=== PATIENT | female | born 1950 | race Caucasian/White ===

== ENCOUNTER 2018-02-18 08:41 | Inpatient (IN) | payer MEDICARE ==
[~2018-02-18] VITALS: Ht 152.4 cm; Wt 64.8 kg
[2018-02-18] VITALS (14 sets, daily range): BP systolic 99–180; BP diastolic 44–140
--- NOTE | 2018-02-18 09:11 | NUR ---
PT GIVEN BREAKFAST TRAY.
[2018-02-18 09:13] LABS: HEMATOCRIT 38.2 % (37.0-47.0); NUCLEATED RBCS 0 /100WBC
[2018-02-18 09:15] LABS: ABSOLUTE EOSINOPHILS 0.3 thou/uL (0.0-0.7); ABSOLUTE LYMPHOCYTES 1.1 thou/uL (0.8-5.3); ABSOLUTE MONOCYTES 0.4 thou/uL (0.0-1.2); ABSOLUTE NEUTROPHILS 8.8 thou/uL (1.6-8.1); BASOPHILS 0.3 %; EOSINOPHILS 2.9 %; HEMOGLOBIN 12.6 gm/dL (12.0-15.0); LYMPHOCYTES 10.3 %; MCHC 33.1 g/dL (28.0-37.0); MCV 90.6 fL (80.0-100.0); MPV 8.3 fl. (7.2-11.1); PLATELET COUNT* 191 thou/uL (150-400); POLYS 82.5 %; RBC 4.22 mil/uL (4.20-5.00); RDW-CV 14.8 % (10.5-14.5); WBC 10.6 thou/uL (4.0-11.0)
[2018-02-18 09:20] LABS: CALCIUM 10.6 mg/dL (8.5-10.1); CREATININE 1.1 mg/dL (0.6-1.3); POTASSIUM 3.7 mmol/L (3.5-5.1)
[2018-02-18 09:30] LABS: URINE BILIRUBIN NEGATIVE (Negative); URINE BLOOD 1+ (Negative); URINE CLARITY CLEAR; URINE COLOR YELLOW; URINE GLUCOSE-RANDOM 3+ (Negative); URINE KETONES NEGATIVE (Negative); URINE LEUKOCYTES-REFLEX NEGATIVE (Negative); URINE NITRITE-REFLEX NEGATIVE (Negative); URINE PROTEIN 1+ (Negative); URINE UROBILINOGEN 0.2 E.U./dl (0.2-1.0)
[2018-02-18 09:32] LABS: ALBUMIN 3.7 g/dL (3.4-5.0); TOTAL BILIRUBIN 0.6 mg/dL (<0.1-1.0); TOTAL PROTEIN 7.6 g/dL (6.4-8.2); TROPONIN-I LEVEL 0.33 ng/mL (<0.06)
[2018-02-18 09:40] LABS: BACTERIA-REFLEX None Seen /HPF (None Seen); CASTS None Seen /LPF (None Seen); CRYSTALS None Seen /LPF (None Seen); SQUAMOUS NONE SEEN /LPF (0-3); URINE RBC 0-2 Rare /HPF (0-2); URINE WBC-REFLEX None Seen /HPF (0-5)
[2018-02-18] MEDS ORDERED: BAYER CHEWABLE81 MG PO (09:45)
[2018-02-18] MEDS ORDERED: CIPRO500 MG PO (09:45)
[2018-02-18] MEDS ORDERED: COREG6.25 MG PO (09:46)
[2018-02-18] MEDS ORDERED: PLAVIX 75 MG TA75 M1 PO (09:46)
[2018-02-18] MEDS ORDERED: LIPITOR80 MG PO (09:46)
[2018-02-18] MEDS ORDERED: LEVEMIR SUBQ (09:46)
[2018-02-18] MEDS ORDERED: GLUCOPHAGE XR500 MG PO (09:47)
[2018-02-18] MEDS ORDERED: LISINOPRIL20 MG PO (09:47)
--- NOTE | 2018-02-18 10:01 | NUR ---
PT REQUESTING TRANSFER TO [facility]
--- NOTE | 2018-02-18 10:22 | NUR ---
PT HAD "EPISODE" OF BEING UNRESPONSIVE DURING CT, TECH CALLED ED. WENT TO CT WHERE PT WAS VOMITING BUT AWAKE AND ALERT. MONITOR PLACED, NO CHANGES IN VITALS. ZOFRAN GIVEN FOR NAUSEA BEFORE COMPLETING CT SCAN. PT TOLERATED WELL.
--- NOTE | 2018-02-18 16:55 | NUR ---
RECEIVED PT FROM [facility]. PT A/O X'S 4. NO C/O PAIN. PACEMAKER PLACED. INCISION IS CLEAN, DRY, INTACT AND OPEN TO AIR. RIGHT GROIN SITE ASSESSED. PER CARIOLOGY TEMPORARY PACEMAKER INITIALLY STARTED TO PLACE. VENOUS SHEET PULLED OUT IN [facility]. GUAZE AND TEGADERM IN PLACE. SITE CLEAN, DRY, & INTACT. 2+ PALPABLE PULSES IN RADIAL AND PEDAL. ASKED PT ABOUT HOME MEDICATIONS. PT STATED, "PLEASE ASK MY DTR" DTR ASKED AND STATED "THE LIST IS IN HER PURSE". PURSE GIVEN TO PT BY DTR. PT LOOKED THROUGH PURSE AND STATED LIST NOT IN PURSE. "MY MUST HAVE THE LIST". IN COMMUTE HOME. WILL ATTEMPT TO CALL WHEN HE'S HOME. SLING IN PLACE TO LEFT ARM. ARM ELEVATED PER ORDERS. VSS. AFEBRILE. WILL CONTINUE PLAN OF CARE.
--- NOTE | 2018-02-18 17:02 | EKG ---
[place] [address] ELECTROCARDIOGRAM REPORT Name: NURY CARTAGENA Room: [address] ADM IN .R.#: [id number] Admission: 02/18/18 Attend Phys: Ken May Discharge: Date of : 46 Report #: [id number] THIS REPORT FOR: //name// [facility] ED Test Date: 2018-02-18 Test Time: 08:50:45 Pat Name: NURY CARTAGENA Department: Room: [facility] Gender: F Dcs Engineer: : 1950 Requested By: Luis Urena Order Number: [id number] MD: Eddie Eckert Measurements Intervals [place] Rate: 102 P: 39 NV: 187 QRS: -60 QRSD: 137 T: 143 QT: 360 QTc: 469 Interpretive Statements Sinus tachycardia Probable left atrial enlargement Right bundle branch block LVH with IVCD and secondary repol abnrm No previous ECG available for comparison Electronically Signed On 02-18-2018 17:02:22 DIRECTOR REACTOR PROJECTS by Eddie Eckert [email or web address] <ELECTRONICALLY SIGNED> By: Eddie Eckert MD, [facility] 02/18/18 1702 0850 0850 Eddie Eckert MD, [facility] /EPI
--- NOTE | 2018-02-18 17:05 | EKG ---
[place] [address] ELECTROCARDIOGRAM REPORT Name: NURY CARTAGENA Room: [address] ADM IN .R.#: [id number] Admission: 02/18/18 Attend Phys: Ken May Discharge: Date of : 46 Report #: [id number] THIS REPORT FOR: //name// [facility] ED Test Date: 2018-02-18 Test Time: 10:43:12 Pat Name: NURY CARTAGENA Department: Room: [facility] Gender: F Workers Compensation Administrator: KIM : 1950 Requested By: Luis Urena Order Number: [id number] Lillie MD: Eddie Eckert Measurements Intervals [place] Rate: 32 P: 102 GA: 251 QRS: 119 QRSD: 156 T: -81 QT: 650 QTc: 475 Interpretive Statements Predominant 4:1 AV block RBBB and LPFB Repol abnrm, global ischemia, diffuse leads Electronically Signed On 02-18-2018 17:05:31 PLATE INSPECTOR by Eddie Eckert [email or web address] <ELECTRONICALLY SIGNED> By: Eddie Eckert MD, [facility] 02/18/18 1705 1043 1043 Eddie Eckert MD, FAC /EPI
--- NOTE | 2018-02-18 17:07 | EKG ---
[place] [address] ELECTROCARDIOGRAM REPORT Name: NURY CARTAGENA Room: [address] ADM IN .R.#: [id number] Admission: 02/18/18 Attend Phys: Ken May Discharge: Date of : 46 Report #: [id number] THIS REPORT FOR: //name// [facility] ED Test Date: 2018-02-18 Test Time: 10:47:44 Pat Name: NURY CARTAGENA Department: Room: [facility] Gender: F Apprentice Stylist: KIM : 1950 Requested By: Luis Urena Order Number: [id number] Reading MD: Eddie Eckert Measurements Intervals [place] Rate: 38 P: 51 NH: 275 QRS: -46 QRSD: 130 T: 203 QT: 610 QTc: 485 Interpretive Statements complete AV block LEFT POSTERIOR FASCICULAR BLOCK and RBBB Electronically Signed On 02-18-2018 17:06:58 FURNACE ERECTOR by Eddie Eckert [email or web address] <ELECTRONICALLY SIGNED> By: Eddie Eckert MD, [facility] 02/18/18 1706 1047 1047 Eddie Eckert MD, FACC /EPI
--- NOTE | 2018-02-18 17:07 | EKG ---
[place] [address] ELECTROCARDIOGRAM REPORT Name: NURY CARTAGENA Room: [address] ADM IN .R.#: [id number] Admission: 02/18/18 Attend Phys: Ken May Discharge: Date of : 46 Report #: [id number] THIS REPORT FOR: //name// [facility] ED Test Date: 2018-02-18 Test Time: 10:51:24 Pat Name: NURY CARTAGENA Department: Room: [facility] Gender: F [place]: KIM : 1950 Requested By: Luis Urena Order Number: [id number] Reading MD: Eddie Eckert Measurements Intervals [place] Rate: 36 P: 0 UT: QRS: -47 QRSD: 121 T: 220 QT: 611 QTc: 473 Interpretive Statements AV block, complete (third degree) LEFT ANTERIOR FASCICULAR BLOCK and RBBB Borderline prolonged QT interval Baseline wander in lead(s) I,II,aVR,aVL,aVF Electronically Signed On 02-18-2018 17:07:35 VIDEOTAPE SALES REPRESENTATIVE by Eddie Eckert [email or web address] <ELECTRONICALLY SIGNED> By: Eddie Eckert MD, FAC 02/18/18 1707 1051 1051 Eddie Eckert MD, [facility] /EPI
--- NOTE | 2018-02-18 17:08 | EKG ---
[place] [address] ELECTROCARDIOGRAM REPORT Name: NURY CARTAGENA Room: [address] ADM IN .R.#: [id number] Admission: 02/18/18 Attend Phys: Ken May Discharge: Date of : 46 Report #: [id number] THIS REPORT FOR: //name// [facility] ED Test Date: 2018-02-18 Test Time: 11:01:19 Pat Name: NURY CARTAGENA Department: Room: [facility] Gender: F Shipwright Supervisor: KIM : 1950 Requested By: Luis Urena Order Number: [id number] Lillie MD: Eddie Eckert Measurements Intervals [place] Rate: 120 P: [place]: QRS: -52 QRSD: 124 T: 144 QT: 386 QTc: 546 Interpretive Statements sinus tachycardia LEFT ANTERIOR FASCICULAR BLOCK and RBBB LVH with IVCD and secondary repol abnrm Prolonged QT interval Electronically Signed On 02-18-2018 17:08:37 MANUFACTURING ANALYST by Eddie Eckert [email or web address] <ELECTRONICALLY SIGNED> By: Eddie Eckert MD, [facility] 02/18/18 1708 00 00 Eddie Eckert MD, [facility] /EPI
[2018-02-18] MEDS ORDERED: CALCIUM 500 +1 EAC5 PO (18:33)
[2018-02-19] VITALS: BP 114/54
--- NOTE | 2018-02-19 00:35 | NUR ---
INITAL ASSESMENT COMPLETED AT 1930. PT SLEEPING WITH OU CLOSED AT THAT TIME. PT AROUSES TO TOUCH AND VOICE. PT'S RIGHT GROIN SITE SOFT, NO BLEEDING OR HEMETOMA. PT INSTRUCTED TO CALL IF BLEEDING OR SWELLING OCCUR AT SITE.
[2018-02-19 01:00] VITALS: BP 116/53
[2018-02-19 03:00] VITALS: BP 117/60
[2018-02-19 04:38] VITALS: BP 127/58
--- NOTE | 2018-02-19 05:41 | NUR ---
PT RETURNED FROM RADIOLOGY FOR PA AND LATERAL CHEST XRAY. PT IN PACED RHYTHM THROUGHOUT SHIFT. HEART RATE AND BLOOD PRESSURE WITHIN NORMAL LIMITS. FISHER CATHETER DISCONTINUED.
--- NOTE | 2018-02-19 09:08 | H ---
[place] [address] HISTORY AND PHYSICAL Name: NURY CARTAGENA Room: [address] ADM IN M.R.#: [id number] Admission: 02/18/18 Attend Phys: Ken May Discharge: Date of : 46 Report #: [id number] THIS REPORT FOR: //name// CC: Eddie Wright DATE OF SERVICE: 02/18/2018 HISTORY OF PRESENT ILLNESS: The patient is a 67-year-old white female who I was asked to see in the Emergency Room after she had a syncopal spell. The history is obtained from the patient and her who is present. There are no old records available here at [place]. Apparently almost 20 years ago, the patient had triple vessel coronary bypass surgery at [facility]. She has done fairly well since that time. She has been followed by clinical quality assurance associate in [facility], who goes to [place], [place]. She is not very active. Apparently 2 years ago, she had a stroke involving the left side of her body. She was admitted to [facility]. She has been on Plavix since that time. She is not very active. However, she denies any recent chest pain, shortness of breath or palpitations. Recently, she has had some low back pain. She apparently saw Dr. Taylor yesterday and noted to have some hematuria. She is placed on antibiotic for urinary tract infection. Today, the patient was in home when she was on the stool, felt lightheaded and fell to the ground. She then awakened. Paramedics were called. When paramedics arrived, she apparently had another syncopal spell. She was brought here to [place] by ambulance. After the patient arrived here, she had an episode of complete heart block with several seconds of P waves, but no R waves. She was given atropine. Cardiology consultation was requested. She is currently in sinus rhythm. She denies any recent tick bite, lightheadedness or previous syncope. PAST MEDICAL HISTORY: She has had a previous cataract extraction. She has a history of hypertension, diabetes, hyperlipidemia. MEDICATIONS: Consists of Levemir insulin, lisinopril, aspirin, carvedilol, metformin, glyburide, atorvastatin, Plavix. ALLERGIES: SHE HAS AN ALLERGY TO BACTRIM. FAMILY HISTORY: Her mother had heart disease. SOCIAL HISTORY: She is . She and her live in [place], [place]. No smoking or alcohol abuse. REVIEW OF SYSTEMS: She has had no history of asthma. She has had a peptic ulcer. She has chronic kidney disease. No cancer. No psychiatric illness. [place] [address] HISTORY AND PHYSICAL Name: NURY CARTAGENA Room: [address] IN [facility]#: [id number] Admission: 02/18/18 Attend Phys: Ken May Discharge: Date of : 46 Report #: [id number] PHYSICAL EXAMINATION: GENERAL: Revealed an elderly frail appearing female lying on a stretcher. She appeared in mild distress. VITAL SIGNS: She had a blood pressure 160/80, pulse is 100. She is afebrile. HEENT: She was anicteric. Conjunctivae are pale. Mucous membranes appear dry. NECK: Veins nondistended. No carotid bruits heard. CHEST: Clear to auscultation. CARDIOVASCULAR: Regular rate and rhythm, no murmur. ABDOMEN: Soft. EXTREMITIES: Had no edema. Dorsalis pedis pulse cannot be palpated. SKIN: Cool and dry. NEUROLOGIC: She is very slow moving. DIAGNOSTIC DATA: There is currently no ECG available. Her workup so far, she had CT scan of the head without contrast that showed evidence of previous right thalamic subacute chronic infarction. Her chest x-ray, normal heart size and clear lung griffin. LABORATORY DATA: Sodium 140, potassium 3.7, creatinine 1.1, glucose 259. Liver function studies are normal. Troponin is 0.33. White blood cell count 10.6, hemoglobin 12.6. Urinalysis, positive glucose, positive protein, positive blood, negative for leukocytes. IMPRESSION AND RECOMMENDATIONS: 1. Complete heart block. Recommend pacemaker. 2. Coronary artery disease. No recent angina. 3. Hypertension. The patient is on an GORYD and a beta aster. 4. Diabetes. 5. Hyperlipidemia. The patient is on a statin drug. 6. Previous stroke. The patient is on Plavix. <ELECTRONICALLY SIGNED> By: Anshu Bautista MD, FACC 02/19/1808 1127 1150Davijenni Eckert MD, FACC /nt
[2018-02-19 09:24] VITALS: BP 131/68
[2018-02-19 11:23] VITALS: BP 131/68
--- NOTE | 2018-02-20 10:19 | EKG ---
[place] [address] ELECTROCARDIOGRAM REPORT Name: MITZINURY Room: [address] IN M.R.#: [id number] Admission: 02/18/18 Attend Phys: Ken May Discharge: 02/19/18 Date of : 46 Report #: [id number] THIS REPORT FOR: //name// [facility] Test Date: 2018-02-19 Test Time: 08:18:45 Pat Name: NURY CARTAGENA Department: Room: [facility] Gender: F Thread Trimmer: : 1950 Requested By: Eddie Eckert Order Number: [id number] Reading MD: Anshu Bautista Measurements Intervals [place] Rate: 95 P: 54 SC: 178 QRS: -61 QRSD: 129 T: 145 QT: 409 QTc: 514 Interpretive Statements Sinus rhythm Right bundle-branch block Left anterior fascicular block Nonspecific ST and T wave abnormality LVH with IVCD, LAD and secondary repol abnrm Prolonged QT interval Compared to ECG 02/18/2018 11:01:19 Sinus tachycardia no longer present Electronically Signed On 02-20-2018 10:19:05 CLINICAL TRIAL COORDINATOR by Anshu Bautista [email or web address] <ELECTRONICALLY SIGNED> By: Anshu Bautista MD, FACC 02/20/18 1019 7 7 Anshu Bautista MD, FACC /EPI
--- NOTE | 2018-02-20 10:49 | D ---
[facility] [address] [place] [address] DISCHARGE SUMMARY Name: NURY CARTAGENA Room: [address] IN M.R.#: [id number] Admission: 02/18/18 Attend Phys: Ken May Discharge: 02/19/18 Date of : 46 Report #: [id number] THIS REPORT FOR: //name// CC: Eddie Eckert MD [facility] Eddie Wright DATE OF SERVICE: 02/19/2018 DISCHARGE DIAGNOSES: 1. Complete heart block. 2. Coronary artery disease. 3. Hypertension. 4. Type 2 diabetes mellitus. 5. Hyperlipidemia. 6. Remote history of cerebrovascular accident. PROCEDURES DURING THE HOSPITALIZATION: Temporary pacemaker placement, followed by permanent dual-chamber pacemaker placement. HOSPITAL COURSE: The patient was admitted to the hospital on 02/18/2018 after having a syncopal episode. The patient was noted to be in complete heart block. She underwent emergent temporary pacemaker placement, followed by uneventful dual-chamber permanent pacemaker placement. The patient's hospital course was otherwise unremarkable. She is being discharged to home in stable condition. DISCHARGE MEDICATIONS: Lisinopril 20 mg p.o. every day, insulin as directed, aspirin 81 mg daily, Lipitor 80 mg at bedtime, Os-Kang 500 plus D b.i.d., carvedilol 6.25 mg b.i.d., ciprofloxacin 500 mg q.12 hours per primary physician, Plavix 75 mg daily and metformin 500 mg b.i.d. DISPOSITION: The patient is to follow up on 03/08/2018 for evaluation of her pacemaker with Dr. Eckert. <ELECTRONICALLY SIGNED> By: Anshu Bautisat MD, FACC 02/20/18 [id number] [facility] [facility] Bautista MD, FACC /nt
--- NOTE | 2018-02-21 08:13 | CARD ---
[address] [address] CARDIAC CATH REPORT Name: NURY CARTAGENA Room: [address] IN M.R.#: [id number] Admission: 02/18/18 Attend Phys: Ken May Discharge: 02/19/18 Date of : 46 Report #: [id number] THIS REPORT FOR: //name// APPROVED REPORT Study performed: 02/18/2018 11:04:17 Patient Status: ED Room #: Event Personnel: Eddie Eckert Gamma Facilities Operator, Mahnaz Hooks RN, Solomon Potter, Irene Rivera Monitor Exam: Insertion of Dual Chamber Permanent Pacemaker Indications: Complete Heart Block The patient is a 67 year-old female with a history of Syncope. Conscious Sedation Start time: 11:53 End Time: 12:15 Fentanyl 50 mcg Versed 1 mg Implanted Devices: dual chamber mri compatible biotronic pacemaker Procedure The patient underwent informed consent. We discussed the details of the procedure including the risks, which include, but not limited to bleeding, infection, vascular damage, cardiac perforation, and pneumothorax. She understood these risks and was willing to proceed. As such, she was brought to the EP/Cardiac Catheterization laboratory in a fasting and sedated state and prepped and draped in a sterile fashion, received IV antibiotics prior to initiation of the procedure and a venogram was performed showing patency of the left axillary vein. The patient underwent conscious sedation, with no related complications. The patient was brought to the EP/Cardiac Catheterization laboratory and the left chest and shoulder were prepped and draped in a sterile manner. During this case, Fluoroscopy and low osmolar contrast were used for imaging. The left subclavian region was infiltrated with 2% Lidocaine subcutaneous anesthesia. A transverse incision was made in the left upper chest cavity. The subcutaneous pocket was formed via blunt dissection. Percutaneous venous access was achieved and [place] introdu[place] [address] CARDIAC CATH REPORT Name: NURY CARTAGENA Room: [address] IN ..#: [id number] Admission: 02/18/18 Attend Phys: Ken May Discharge: 02/19/18 Date of : 46 Report #: [id number] the left Subclavian vein. Sheaths were positions using the modified Seldinger technique Through the introducer sheaths the atrial and ventricular lead wires were positioned in the right atrial appendage and right ventricular apex respectively. Utilizing fluoroscopic guidance, the atrial and ventricular lead wires were advanced over the wires and positioned in the right atria and right ventricle respectively. Capturing and sensing thresholds were verified. Electrode Parameters P Wave: 2.7 mv R Wave: 4.9 mv Atrial Threshold: 1.0 v @ 0.4 ms Ventricular Threshold: 1.0 @ 0.4 ms Atrial Resistance: 409 ohm Ventricular Resistance: 546 ohm Dual Chamber The atrial and ventricular leads were then secured using 0 silk sutures. The subcutaneous pocket was irrigated with ancef antibiotic solution.The atrial and ventricular leads were attached to the appropriate receptacles on the pulse generator and set screws firmly tightened to insure adequate contact and stability. The lead and pulse generator were placed into the subcutaneous pocket. Sharp and sponge counts were confirmed to be correct. At this time the pocket was closed subcutaneously with a 0 Vicryl and the skin was closed with a 4.0 Vicryl. The operative site was dressed in sterile fashion with skin affix and the patient was transferred to the floor in stable condition. Findings Specimens Removed: No Estimated Blood Loss: 5 cc Conclusion successful placement of a dual chamber pacemaker and leads <ELECTRONICALLY SIGNED> By: Eddie Eckert MD, [facility] 02/21/18812 2 2Dashantell Eckert MD, FACC /INF
--- NOTE | 2018-02-22 08:24 | CARD ---
[facility] [address] [place] [address] CARDIAC CATH REPORT Name: NURY CARTAGENA Room: [address] IN M.R.#: [id number] Admission: 02/18/18 Attend Phys: Ken May Discharge: 02/19/18 Date of : 46 Report #: [id number] THIS REPORT FOR: //name// CC: Eddie Wright DATE OF SERVICE: 02/18/2018 TITLE OF PROCEDURE: Placement of a temporary pacing lead through the right femoral vein. DESCRIPTION OF PROCEDURE: The patient brought urgently to the cardiac catheterization lab after a syncopal episode and the patient was noted to have intermittent complete heart block. The right groin area was cleaned with ChloraPrep and sterilely draped in usual fashion. The area was anesthetized with 1% lidocaine and a 6-Irish sheath was placed in the right femoral vein using the percutaneous technique. The sheath was sutured in place using 2-0 silk. A 5-Irish bipolar balloon tip pacing lead was then inserted through the sheath and guided under fluoroscopy into the apex of right ventricle. Threshold for capture was less than 1 milliamp. The lead was secured in place and the sheath sutured using 0 silk. A sterile dressing was applied. The patient left the cardiac catheterization lab in stable condition. IMPRESSION: Successful placement of a temporary pacing lead through the right femoral vein. <ELECTRONICALLY SIGNED> By: Eddie Eckert MD, [facility] 02/22/18 0824 0816 1927Davijenni Eckert MD, LILLIE /nt
== END 2018-02-19 12:31 | disposition home or self-care (01) | DRG 243 ==
LOC: M.ERS 08:41 → M.TBA-ER 11:09 → M.ICU 11:09
PROVIDERS: Emergency Medicine Emergency Medical Services; ADMIT Internal Medicine
DX: I44.2 Atrioventricular block, complete (principal); N39.0 Urinary tract infection, site not specified; E11.9 Type 2 diabetes mellitus without complications; I25.10 Atherosclerotic heart disease of native coronary artery without angina pectoris; E78.5 Hyperlipidemia, unspecified; I10 Essential (primary) hypertension; I25.2 Old myocardial infarction; Z86.73 Personal history of transient ischemic attack (TIA), and cerebral infarction without residual deficits; Z95.1 Presence of aortocoronary bypass graft; Z79.82 Long term (current) use of aspirin; Z79.84 Long term (current) use of oral hypoglycemic drugs; Z79.899 Other long term (current) drug therapy; Z88.1 Allergy status to other antibiotic agents; Z82.49 Family history of ischemic heart disease and other diseases of the circulatory system

== ENCOUNTER 2019-12-09 05:55 | Emergency (ER) | payer MEDICARE ==
[~2019-12-09] VITALS: Ht 160 cm; Wt 59.0 kg
--- NOTE | ~2019-12-09 | EMS ---
[place] [address] EMS Patient Care Report Name: NURY AYALA [id number] Admission: 12/09/19 Attend Phys: Discharge: Date of : 46 Report #: [id number] THIS REPORT FOR: //name// Report Transmitted: 12/09/2019 05:56 EMS Care Summary [facility] Incident [id number] @ 12/09/2019 04:34 Incident Location [address] [place] [address] Patient NURY AYALA Female, 69 Years 1950 Patient Address [address] [place] [address] Patient History Diabetes,Pacemaker/AICD,Myocardial Infarction (MA), Patient Allergies Erythromycin, Patient Medications Clopidogrel, Metformin, Lisinopril, Atorvastatin, Chief Complaint Nausea Disposition Transported No Lights/[place] Reason Diabetic Problem Transported To [facility] Narrative Dispatch: [facility] was dispatched to a local residence for a patient who had a possible diabetic problem. [facility] responded from the station and [place] [address] EMS Patient Care Report Name: NURY AYALA Room: [facility]#: [id number] Admission: 12/09/19 Attend Phys: Discharge: Date of : 46 Report #: [id number] Chief Complaint: Upon arrival to the scene, the patient, (Nury Ayala) was found walking in her living room to a chair. Nury stated that she had nausea and diarrhea, and that she had just been feeling unwell for the last three or four days. No immediate life threats or injuries were noted. History of Present Illness: Nury stated that nothing like this had ever happened to her before. She stated that approximately three or four days ago, that she began to feel nauseated as well as an increased difficulty moving around. She stated she also felt more lethargic. Nury denied any changes in her routine, and stated that the problems gradually got worse over the aforementioned time frame. Nury stated that she also had flank area back pain, stating that it felt like a kidney stone. Assessment: Primary Assessment - Nury had a patent airway, her respiratory effort was noted to be labored. Her skin was pink, warm, and dry. Radial pulses were present. No disability was noted. Secondary Assessment - See assessment section for further information. Reason for Ambulance Transport: Nury required further evaluation and treatment at the hospital. Treatment: Assessment was performed. Vital signs were obtained. 3-Lead and 12-Lead EKGs were obtained showing a paced rhythm without ectopy or elevation. IV access was obtained in the left forearm with a 20 gauge catheter. It was flushed and secured with a saline lock. 4 milligrams of IV ondansetron was administered. Summary of Call: Nury was assisted to her stair lift device via her walker, she was then transported down the stairs via her stair lift, and was then transferred to the cot. All seat belts were applied. Nury was taken to the ambulance and loaded without incident. She was covered with a blanket. Treatments and assessments performed as noted. Non-emergency transport to the hospital began. During transport, no changes in patient condition were noted. Report was called to the receiving facility. Upon arrival to the hospital, Nury was unloaded and taken into the facility without incident. She was transferred to the hospital bed without incident. Report was given to nursing staff, signatures were obtained, and [place] [address] EMS Patient Care Report Name: NURY AYALA Room: [facility]#: [id number] Admission: 12/09/19 Attend Phys: Discharge: Date of : 46 Report #: [id number] Initial Vitals @04:49P: 110,R: 20,BP: 136/74,GCS: 15,Glucose: 230,SpO2: 99,Revised Trauma: 12, @05:17P: 119,R: 16,BP: 136/78,Pain: 2/10,GCS: 15,SpO2: 96,Revised Trauma: 12, @05:32P: 107,R: 16,BP: 137/65,Pain: 2/10,GCS: 15,SpO2: 96,Revised Trauma: 12, @05:42P: 107,R: 18,Pain: 2/10,GCS: 15,SpO2: 98, @05:27P: 115,R: 18,BP: 137/67,Pain: 2/10,GCS: 15,SpO2: 96,Revised Trauma: 12, @05:06P: 104,R: 16,Pain: 2/10,GCS: 15,SpO2: 100,MA Suspected: false @05:02P: 100,R: 16,BP: 162/80,Pain: 4/10,GCS: 15,Temp: 98.1F,SpO2: 96,Revised Trauma: 12, Assessments @04:51MENTAL:Person Oriented,Time Oriented,Event Oriented,Place Oriented,SKIN:HEENT:Eyes: Left Pupil: 2-mm,Eyes: Right Pupil: 2-mm,LUNG SOUNDS:General: Nausea,General: Diarrhea,ABDOMEN:General: Nausea,General: Diarrhea,PELVIS//GI:EXTREMITIES:Capillary Refill: Right Upper: < 2 Sec,PULSE:Radial: 2+ Normal,NEURO:@05:32MENTAL:Place Oriented,Event Oriented,Person Oriented,Time Oriented,SKIN:HEENT:Eyes: Right Pupil: 2-mm,Eyes: Left Pupil: 2-mm,LUNG SOUNDS:ABDOMEN:PELVIS//GI:EXTREMITIES:Left Arm: No Abnormalities,Right Arm: No Abnormalities,Left Leg: No Abnormalities,Right Leg: No Abnormalities,PULSE:NEURO: Impression Nausea Procedures @04:45ALS AssessmentResponse: UnchangedSucceeded@05:10Normal Saline (.9% NaCl) 10cc (20 ga) Site: Forearm-LeftResponse: UnchangedSucceeded@05:12Zofran - 4 Milligrams (mg) - Intravenous (IV)Response: Improved@05:0612-Lead ECGResponse: UnchangedSucceeded Timeline 04:34,Call Received 04:34,Dispatched 04:37,En Route 04:41,On Scene 04:43,At Patient 04:45,ALS Assessment,Response: UnchangedSucceeded, 04:49,BP: 136/74 M,PULSE: 110,RR: 20 R,SPO2: 99 Ox,ETCO2: ,B,PAIN: ,GCS: 15, 05:02,BP: 162/80 M,PULSE: 100,RR: 16 R,SPO2: 96 Ox,ETCO2: ,BG: ,PAIN: 4,GCS: 15, 05:06,12-Lead ECG,Response: UnchangedSucceeded, 05:06,BP: / M,PULSE: 104,RR: 16 R,SPO2: 100 Ox,ETCO2: ,BG: ,PAIN: 2,GCS: 15, 05:10,Normal Saline (.9% NaCl) 10cc 20 ga Site: Forearm-Left,Response: UnchangedSucceeded, 05:11,[place] [address] EMS Patient Care Report Name: SUNSHINE AYALAA Room: [facility]#: [id number] Admission: 12/09/19 Attend Phys: Discharge: Date of : 46 Report #: [id number] 05:12,Zofran - 4 Milligrams (mg) - Intravenous (IV),Response: Improved 05:17,BP: 136/78 M,PULSE: 119,RR: 16 R,SPO2: 96 Ox,ETCO2: ,BG: ,PAIN: 2,GCS: 15, 05:27,BP: 137/67 M,PULSE: 115,RR: 18 R,SPO2: 96 Ox,ETCO2: ,BG: ,PAIN: 2,GCS: 15, 05:32,BP: 137/65 M,PULSE: 107,RR: 16 R,SPO2: 96 Ox,ETCO2: ,BG: ,PAIN: 2,GCS: 15, 05:42,BP: / M,PULSE: 107,RR: 18 R,SPO2: 98 Ox,ETCO2: ,BG: ,PAIN: 2,GCS: 15, 05:50,At Destination 06:48,Call Closed Disclaimer v1.1 Copyright 2020 [employer] This EMS Care Summary contains data elements from the applicable legal record (which may be displayed differently). It is designed to provide pertinent information for the following purposes: continuity of care, clinical quality, and state data reporting. The complete legal record is available to ED staff and administrators of the receiving hospital in [employer] Patient Tracker. All data is provided "as is."
[~2019-12-09 05:55] MED LIST: BAYER CHEWABLE81 MG PO; CALCIUM 500 +1 EAC5 PO; CIPRO500 MG PO; COREG6.25 MG PO; GLUCOPHAGE XR500 MG PO; LEVEMIR SUBQ; LIPITOR80 MG PO; LISINOPRIL20 MG PO; PLAVIX 75 MG TA75 M1 PO
[2019-12-09 06:00] VITALS: BP 149/60
[2019-12-09 07:00] LABS: BE -1.3 mmol/L (-2 to +3); PCO2 38.7 mmHg (35.0-45.0); PO2 84.3 mmHg (75.0-100.0); pH 7.397 (7.340-7.450)
[2019-12-09 07:22] LABS: HEMATOCRIT 30.8 % (37.0-47.0); HEMOGLOBIN 10.8 gm/dL (12.0-15.0); MCH 31.1 pg (26.0-34.0); MCHC 34.9 g/dL (28.0-37.0); MPV 8.2 fl. (7.2-11.1); NUCLEATED RBCS 0 /100WBC; PLATELET COUNT* 178 thou/uL (150-400); RBC 3.46 mil/uL (4.20-5.00); RDW-CV 14.5 % (10.5-14.5)
[2019-12-09 07:34] LABS: APTT 27.3 Seconds (25.0-31.3); INR 1.1; PROTIME 11.2 Seconds (9.20-11.50)
[2019-12-09 07:40] LABS: URINE BILIRUBIN NEGATIVE (Negative); URINE BLOOD 2+ (Negative); URINE CLARITY CLEAR; URINE COLOR YELLOW; URINE GLUCOSE-RANDOM 2+ (Negative); URINE KETONES TRACE (Negative); URINE LEUKOCYTES-REFLEX TRACE (Negative); URINE PROTEIN 2+ (Negative); URINE SPECIFIC GRAVITY 1.025 (1.005-1.030); URINE UROBILINOGEN 0.2 E.U./dl (0.2-1.0)
[2019-12-09 07:49] LABS: CALCIUM 10.8 mg/dL (8.5-10.1); CREATININE 1.2 mg/dL (0.6-1.3); POTASSIUM 3.8 mmol/L (3.5-5.1)
[2019-12-09 07:53] LABS: ALBUMIN 2.9 g/dL (3.4-5.0); MAGNESIUM 1.5 mg/dL (1.8-2.4); TOTAL BILIRUBIN 0.6 mg/dL (<0.1-1.0); TOTAL PROTEIN 7.2 g/dL (6.4-8.2)
[2019-12-09 07:53] LABS: URINE NITRITE-REFLEX POSITIVE (Negative)
[2019-12-09 07:54] LABS: SQUAMOUS 4-10 Moderate /LPF (0-3)
[2019-12-09 07:55] LABS: URINE WBC-REFLEX >25 Many /HPF (0-5)
[2019-12-09 07:56] LABS: BACTERIA-REFLEX >30 Many /HPF (None Seen); URINE RBC 3-10 Few /HPF (0-2)
[2019-12-09 07:57] LABS: CASTS None Seen /LPF (None Seen); CRYSTALS None Seen /LPF (None Seen); MUCUS None Seen strn/LPF (None Seen)
[2019-12-09 08:19] LABS: ABSOLUTE LYMPHOCYTES 0.6 thou/uL (0.8-5.3); ABSOLUTE MONOCYTES 0.6 thou/uL (0.0-1.2); ABSOLUTE NEUTROPHILS 9.9 thou/uL (1.6-8.1); PLATELET ESTIMATE ADEQUATE
[2019-12-09 08:20] LABS: ANISOCYTOSIS Occasional
[2019-12-09 11:05] VITALS: BP 129/60
--- NOTE | 2019-12-10 13:58 | EKG ---
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1950 Requested By: Rika Ford Order Number: [id number] MD: Anshu Bautista Measurements Intervals [place] Rate: 104 P: 43 TX: 164 QRS: -53 QRSD: 120 T: 114 QT: 347 QTc: 457 Interpretive Statements Sinus tachycardia Right bundle branch block Left anterior fascicular block LVH with IVCD, LAD and secondary repol abnrm Compared to ECG 02/19/2018 08:18:45 Sinus rhythm no longer present Left anterior fascicular block no longer present Prolonged QT interval no longer present Electronically Signed On 12-10-2019 13:58:45 CDT by Anshu Bautista [email or web address] <ELECTRONICALLY SIGNED> By: Anshu Bautista MD, [facility] 12/10/19 1358 0556 0556 Anshu Bautista MD, [facility] /EPI
== END 2019-12-09 11:05 | disposition short-term general hospital (02) ==
LOC: M.ERS 05:55 → M.TBA-ER 09:03 → M.ERS 09:03
PROVIDERS: Personal Emergency Response Attendant
DX: I21.4 Non-ST elevation (NSTEMI) myocardial infarction (principal); N17.9 Acute kidney failure, unspecified; N20.0 Calculus of kidney; N39.0 Urinary tract infection, site not specified; R19.7 Diarrhea, unspecified; I10 Essential (primary) hypertension; E11.9 Type 2 diabetes mellitus without complications; Z20.828 Contact with and (suspected) exposure to other viral communicable diseases; Z88.1 Allergy status to other antibiotic agents; Z88.2 Allergy status to sulfonamides

== ENCOUNTER → 2020-01-18 | Outpatient (CLI) | payer MEDICARE ==
--- NOTE | 2020-01-19 15:57 | CARDNUC ---
[place] [address] CARDIAC NUCLEAR IMAGING REPORT Name: NURY CARTAGENA Room: [facility]#: [id number] Admission: 01/18/20 Attend Phys: Anshu Bautista, Discharge: Date of : 46 Date of Service: 01/19/20 1557 Report #: [id number] THIS REPORT FOR: cc: ALCIRA STEWART NP, HALEY E. NP Park, Jin S. MD ~ APPROVED REPORT Imaging Protocol: Rest Tc-99m/Stress Tc-99m 1 day Study performed: 01/18/2020 11:34:37 Indication: Syncope Stress Tech: Aminata Weiner Stress Nurse: Ruth Acevedo RN NM Tech:ABEL Han Ht: 5 ft 1 in Wt: 132 lbs BSA: 1.58 m2 BMI: 24.93 Medical History Medical History: CAD s/p CABG, Diabetes, HTN, Hyperlipidemia, Pacemaker in situ, Stroke/TIAcomplete heart block Medications: asa, atorvastatin, carvedilol, plavix, lisinopril Allergies: bactrim, cipro, macrolides, ketolides Cardiac Risk Factors: Age, Diabetes (insulin), FHX of CAD, HTN, Hyperlipidemia Previous Cardiac Procedures: CABG, PPM Exercise History: Sedentary Meds Held (24 hrs): carvedilol Resting Data Rest SPECT myocardial perfusion imaging was performed in supine position 30 minutes following the intravenous injection of 10.0 mCi of Tc-99m Sestamibi. Time of rest injection: 1000 Date: 01/18/2020 The images were gated to evaluate regional wall motion and calculate left ventricular ejection fraction. Administration Route: IV Administration Site: Right AC Pharmacologic Stress Pharmacologic stress test was performed by injecting Regadenoson 0.4 mg IV push over 10-15 seconds immediately [place] [address] CARDIAC NUCLEAR IMAGING REPORT Name: NURY CARTAGENA Room: [facility]#: [id number] Admission: 01/18/20 Attend Phys: Anshu Bautista, Discharge: Date of : 46 Date of Service: 01/19/20 1557 Report #: [id number] injection of 33.5 mCi of Tc-99m Sestamibi. Time of stress injection: 1130 Date: 01/18/2020 Administration Route: IV Administration Site: Right AC Gated Stress SPECT was performed 40 minutes after stress injection. The images were gated to evaluate regional wall motion and calculate left ventricular ejection fraction. Prone imaging was performed. Stress Test Details Stress Test: Pharmacologic stress testing performed using 0.4 mg of regadenoson per 5 mL given IV over 10 seconds. Reason for pharmacologic stress test: PPM. HR Max Heart Rate (APMHR): 149 bpm Resting HR: 82 bpm Target HR (85% APMHR): 126 bpm Max HR Achieved: 113 bpm % of APMHR: 75 Recovery HR: 93 bpm BP Resting BP: 169/83 mmHg Max BP: 138/77 mmHg Recovery BP: 173/69 mmHg ECG Resting ECG: Sinus Rhythm, RBBB Stress ECG: Sinus Rhythm, RBBB ST Change: Non-ischemic Clinical Reason for Termination: Completed protocol Nurse Comments 60 mg caffeine given ivp for n/v Study Quality Study: Good Study Data Post stress, the left ventricular ejection was 56%.. Perfusion There is a medium area of moderately reduced uptake in the basal and mid segment of the inferior wall which is seen [place] [address] CARDIAC NUCLEAR IMAGING REPORT Name: NURY CARTAGENA Room: [facility]#: [id number] Admission: 01/18/20 Attend Phys: Anshu Bautista, Discharge: Date of : 46 Date of Service: 01/19/20 1557 Report #: [id number] and improves on the resting images. This is most consistent with ischemia. Nuclear Conclusion ECG Findings: negative for ischemia Clinical Findings: non-diagnostic Nuclear Findings: positive for ischemia Exercise Capacity: not assessed There is a reversible defect in the inferior wall, consistent with ischemia. The left ventricular ejection fraction is calculated to be 56%. <ELECTRONICALLY SIGNED> By: Abel Hernandez MD 01/19/20 1557 155 155 Abel Hernandez MD /INF
== END ==
LOC: M.NUC 01-03 15:01 → M.CRD 09:00 → M.NUC 09:25
PROVIDERS: ATTEND Internal Medicine Cardiovascular Disease
DX: I25.10 Atherosclerotic heart disease of native coronary artery without angina pectoris (principal)

== ENCOUNTER → 2020-02-12 | Outpatient (CLI) | payer MEDICARE ==
[2020-02-12] VITALS (8 sets, daily range): BP systolic 117–170; BP diastolic 56–83
[~2020-02-12] VITALS: Ht 154.9 cm; Wt 61.7 kg
[~2020-02-12] MED LIST changes: +GLUCOPHAGE1000 MG PO
[2020-02-12 09:33] LABS: HEMATOCRIT 37.1 % (37.0-47.0); HEMOGLOBIN 12.3 gm/dL (12.0-15.0); MCHC 33.1 g/dL (28.0-37.0); MCV 90.7 fL (80.0-100.0); MPV 7.7 fl. (7.2-11.1); RBC 4.09 mil/uL (4.20-5.00); RDW-CV 14.8 % (10.5-14.5); WBC 6.4 thou/uL (4.0-11.0)
[2020-02-12 09:47] LABS: ANION GAP 4 mmol/L (7-16); BUN 20 mg/dL (7-18); CHLORIDE 101 mmol/L (98-107); CO2 29 mmol/L (21-32); CREATININE 1.1 mg/dL (0.6-1.3); GLUCOSE 177 mg/dL (70-99); POTASSIUM 4.4 mmol/L (3.5-5.1); SODIUM 134 mmol/L (136-145)
[2020-02-12 09:52] LABS: ALBUMIN 3.8 g/dL (3.4-5.0); ALKALINE PHOSPHATASE 101 U/L (46-116); SGOT 20 U/L (15-37); SGPT 27 U/L (30-65); TOTAL BILIRUBIN 0.5 mg/dL (<0.1-1.0); TOTAL PROTEIN 7.9 g/dL (6.4-8.2)
[2020-02-12 09:57] LABS: APTT 23.4 Seconds (25.0-31.3); INR 1.1; PROTIME 11.2 Seconds (9.20-11.50)
[2020-02-12 10:08] LABS: CHOLESTEROL 136 mg/dL (<200); HDL CHOLESTEROL 82 mg/dL (>40); LDL CHOLESTEROL 37 mg/dL (<100); SERUM ASSESSMENT Clear; TC:HDL 1.7 Ratio (Not establshd); TRIGLYCERIDE 86 mg/dL (<150); VLDL 17 mg/dL (<40)
--- NOTE | 2020-02-12 13:18 | EKG ---
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1950 Requested By: Eddie Eckert Order Number: [id number] Reading MD: Eddie Eckert Measurements Intervals [place] Rate: 78 P: 56 CA: 187 QRS: -47 QRSD: 126 T: -3 QT: 382 QTc: 436 Interpretive Statements Sinus rhythm RBBB and LAFB Left ventricular hypertrophy Compared to ECG 12/09/2019 05:56:53 Sinus tachycardia no longer present Electronically Signed On 02-12-2020 13:18:13 BUFFER COPPER by Eddie Eckert [email or web address] <ELECTRONICALLY SIGNED> By: Eddie Eckert MD, [facility] 02/12/20 1318 0944 0944 Eddie Eckert MD, [facility] /EPI
--- NOTE | 2020-02-12 14:23 | CARD ---
[address] [address] CARDIAC CATH REPORT Name: NURY CARTAGENA [id number] Admission: 02/12/20 Attend Phys: Eddie Eckert MD, F Discharge: Date of : 46 Report #: [id number] THIS REPORT FOR: //name// cc: ALCIRA STEWART NP, HALEY E. NP ~ APPROVED REPORT Study performed: 02/12/2020 09:34:13 Patient Details Patient Status: Out-Patient Room #: The patient is a 69 year-old female Event Personnel Milton Erazo RTR Monitor, Delbert Patel RN RN, Solomon Potter Blick, David Zyglo Technician Procedures Performed Left Heart Cath Coronaries, Bypass Grafts [id number] LHCCORCABG Hemostasis w/ Mynx Indication Non-STEMI , Positive stress test Risk Factors Hypercholesterolemia, Hypertension, Diabetes Previous Procedures/Diagnoses Previous CABG Admission/Lab Medications/Medications given during procedure Midazolam (Versed) IV 1 mg, Lidocaine Subcut 20 ml Procedure Narrative The patient was brought electively to the Cardiac Catheterization Laboratory and was prepped and draped in a sterile manner. The right femoral was infiltrated with 2% Lidocaine subcutaneous anesthesia. A [place] 6 FR sheath was inserted into the right femoral artery. Coronary angiography was performed using coronary diagnostic catheters. The right coronary system was accessed and visualized with a Diagnostic 3DRC 6Fr catheter. The left coronary system was accessed and visualized with a Diagnostic JL3.5 6Fr catheter. The left ventricle was accessed and visualized with a Diagnostic Angled Pigtail 6Fr catheter. Left ventricular/[place] [address] CARDIAC CATH REPORT Name: NURY CARTAGENA Room: [facility]#: [id number] Admission: 02/12/20 Attend Phys: Eddie Eckert MD, F Discharge: Date of : 46 Report #: [id number] via catheter pullback. Left ventriculogram was performed in [place] projection. Closure device was deployed with a 6 Fr Mynx. The patient tolerated the procedure well and there were no complications associated with the procedure. There was no hematoma. Unable to cannulate rca nor rca svg with jr4 catheter. RCA and SVG to rca cannulated with a 3drc catheter. SVG to circumflex cannulated with a jr4 catheter. CLARK graft cannulated with a jr4 catheter. Intraoperative Conscious Sedation Sedation start time: 1027 Case end Time: 1101 Versed 1 mg Fluoro Time: 5.8 minutes Dose: DAP 24678 cGycm2 855.94 mGy Contrast Type and Amount: Omnipaque 215 ml Coronary Angiography The patient's coronary anatomy is co- dominant. [place] Artery Percent Stenosis CLARK graft to lad was patent, although the lad had a narrow lumen and had a mid 90% stenosis noted. SVG to the rca appeared chronically occluded proximally. SVG to a diagonal branch and jump graft to the second marginal artery of the circumflex had a 30% proximal and 30% mid stenosis noted. Diagnostic Cath Left Main 50% distal stenosis LAD chronically occluded after a small first diagonal artery. Circumflex 80% ostail stenosis. OM2 80% stenosis noted just distal to the insertion of the SVG Right Coronary appeared chronically occluded proximally, with retrograde collaterals from the left coronary R PDA 90% proximal stenosis Left Ventriculography The left ventricular ejection fraction is estimated to be 45-50%. Left ventricular wall motion abnormalities are present. There is 1+ mitral insufficiency. moderate hypokinesis noted of the inferior wall Hemodynamics The aortic pressure is 166/65 mmHg with a mean [place] [address] CARDIAC CATH REPORT Name: NURY CARTAGENA Room: [facility]#: [id number] Admission: 02/12/20 Attend Phys: Eddie Eckert MD, F Discharge: Date of : 46 Report #: [id number] ventricular pressure is 159/10 mmHg with a mean of mmHg. The left ventricular end diastolic pressure is 12 mmHg. There was no gradient across the aortic valve upon pullback. Pullback from the left ventricle to the aorta revealed no gradient across the aortic valve. Conclusion 1. 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 80% ostial stenosis of the circumflex, and 90% stenosis of the PDA branch of the distal co-dominant circumflex 2. patent SVG to the diagonal artery and jump graft to the second marginal branch of the circumflex, that had a 80% stenosis beyond the insertion of the vein graft 3. patent CLARK graft to the lad, which was noted to be have a narrow lumen with a mid 90% stenosis 4. LVEF 45-50% Recommendations Aggressive Medical Therapy <ELECTRONICALLY SIGNED> By: Eddie Eckert MD, [facility] 02/12/20 1422 1422 1422David Roxane Eckert MD, FACC /INF
== END ==
LOC: M.CL 08:53
PROVIDERS: ATTEND Internal Medicine Cardiovascular Disease
DX: R94.30 Abnormal result of cardiovascular function study, unspecified (principal); I25.2 Old myocardial infarction; E11.9 Type 2 diabetes mellitus without complications; I10 Essential (primary) hypertension; I44.2 Atrioventricular block, complete; I63.9 Cerebral infarction, unspecified; I25.10 Atherosclerotic heart disease of native coronary artery without angina pectoris; Z86.73 Personal history of transient ischemic attack (TIA), and cerebral infarction without residual deficits; Z79.899 Other long term (current) drug therapy; Z98.890 Other specified postprocedural states; Z87.440 Personal history of urinary (tract) infections